=== PATIENT | female | born 1990 | race Two or more races ===

== ENCOUNTER 2017-10-19 07:54 | Emergency (ER) | payer OTHER ==
[~2017-10-19] VITALS: Ht 160 cm; Wt 83.9 kg
[2017-10-19 08:03] VITALS: Ht 160 cm; Wt 83.9 kg
[2017-10-19 11:46] VITALS: BP 123/83
== END 2017-10-19 11:46 | disposition home or self-care (01) ==
LOC: ED 07:54
DX: R10.9 Unspecified abdominal pain (principal); R11.10 Vomiting, unspecified; R19.7 Diarrhea, unspecified
CPT/HCPCS: J0780; J1885; J7030